=== PATIENT | female | born 1995 | race African-American/Black ===

== ENCOUNTER 2018-12-15 20:10 | Emergency (ER) | payer OTHER ==
[~2018-12-15] VITALS: Ht 167.6 cm; Wt 67.1 kg
--- NOTE | 2018-12-15 20:10 | NUR ---
SAMM FROM [facility] FOR ETOH; PT AAOX4, PT ON MONITOR, PT TO BED 15, NAD NOTED, VSS, NAD NOTED, PENDING MD RAMIRES
[2018-12-15] MEDS ORDERED: ONDANSETRON HCL/PF 4 MG/2 ML VIAL ONE (20:23)
[2018-12-15] MEDS ORDERED: IV NS 0.9% 1,000 ML BAG IV ONE (20:30)
[2018-12-15] MEDS ORDERED: ONDANSETRON HCL/PF - ER 4 MG/2 ML VIAL IV ONE (20:30)
[2018-12-15 22:15] VITALS: BP 129/75
--- NOTE | 2018-12-15 22:15 | NUR ---
Patient discharged to home in stable condition. Written and verbal after care instructions given. Patient verbalizes understanding of instruction. IV removed. Catheter intact and site benign. Pressure and 4x4 applied to site. No bleeding noted.
== END 2018-12-15 22:16 | disposition home or self-care (01) ==
LOC: ER 20:12
DX: F10.129 Alcohol abuse with intoxication, unspecified (principal); R11.2 Nausea with vomiting, unspecified; Y90.6 Blood alcohol level of 120-199 mg/100 ml
CPT/HCPCS: 36415; 80307; 96361; 96374; 99283; J2405; J7030; G0480